=== PATIENT | male | born 1990 | race Caucasian/White ===

== ENCOUNTER 2018-03-19 17:37 | Emergency (ER) | payer SELFPAY ==
[~2018-03-19] VITALS: Ht 180.3 cm; Wt 63.0 kg
[~2018-03-19 17:37] MED LIST: CEPH500C3 PO; DOXY100T PO; LORTA10 PO; Z.0.NO CURRENT MEDS
[2018-03-19 17:39] VITALS: BP 141/69; PULSE 89; RESP 16; TEMP 98; O2SAT 98
--- NOTE | 2018-03-19 18:41 | PD ---
HPI Chief Complaint: Skin Problem Time Seen by Provider: 18:29 Travel History International Travel<30 days: No Contact w/Intl Traveler<30days: No Traveled to known affect area: No History of Present Illness HPI Patient comes in for evaluation of what he believes is athlete's foot the bilateral feet has been ongoing for a month and getting progressively worse. Patient reports trying multiple [id number] antifungal creams as well as soaking his feet in water with vinegar and water with bleach. Reports burning sensation in his feet that is worse palpation. 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 Patient reports he is also tried using Gold Macias powder in his boots as well as buying new socks. Denies any fevers with this or weight loss. PFSH Past Medical History Medical History: Denies Significant Hx ADHD: No Cancer: No Diabetes: No Diminished Hearing: No Psychiatric: No Migraines: No Seizures: No Thyroid Disease: No Ulcer: No Past Surgical History Abdominal Surgery: Yes Appendectomy: No Cholecystectomy: No Social History Alcohol Use: No Tobacco Use: Yes (1PPD) Substance Use: No Allergies-Medications (Allergen,Severity, Reaction): Coded Allergies: Sulfa (Sulfonamide Antibiotics) (Unverified Allergy, Unknown, Hives, ) Uncoded Allergies: SEASONAL (Allergy, Unknown, Hives, 05/03/06) Reported Meds & Prescriptions Reported Meds & Active Scripts Active Terbinafine Topical 1 % Cream 1 Applic TOPICAL BID 28 Days Hydrocodone/Acetaminophen 10 mg/325 mg 10 Mg/325 Mg Tab 1 Tab PO Q4HPRN Doxycycline Hyclate 100 mg (Doxycycline Hyclate) 100 Mg Tab 100 Mg PO BID Keflex (Cephalexin Monohydrate) 500 Mg Cap 500 Mg PO QID Reported No Current Meds (Miscellaneous Medication) Misc Review of Systems Except as stated in HPI: all other systems reviewed are Neg Physical Exam Narrative GENERAL: Well-developed, well nourished, in no acute distress, and non-ill appearing. SKIN: Tinea pedis noted bilateral feet. No signs of secondary infection. No signs of cellulitis or abscess. No crepitus. HEAD: Atraumatic. Normocephalic. EYES: Pupils equal and round. EOMI. No scleral icterus. No injection or drainage. ENT: No nasal bleeding or discharge. Mucous membranes pink and moist. NECK: Trachea midline. Supple. No nuclear rigidity. CARDIOVASCULAR: Dorsal pulses 2+, intact, and equal bilaterally. Capillary refill less than 2 seconds. RESPIRATORY: No accessory muscle use. No respiratory distress. MUSCULOSKELETAL: No obvious deformities. No clubbing. No cyanosis. No edema. Full range of motion. NEUROLOGICAL: Awake and alert. No obvious cranial nerve deficits. Motor grossly within normal limits. Normal speech. PSYCHIATRIC: Appropriate mood and affect; insight and judgment normal. Data Data Last Documented VS Vital Signs Date Time Temp Pulse Resp B/P (MAP) Pulse Ox O2 Delivery O2 Flow Rate FiO2 03/19/18 19:08 81 18 129/79 (96) 100 03/19/18 17:39 98.0 Orders Orders Ed Discharge Order (03/19/18 18:52) MDM Medical Decision Making Medical Screen Exam Complete: Yes Emergency Medical Condition: Yes Differential Diagnosis Tinea pedis, cellulitis, folliculitis Narrative Course The patient looks great and was non-ill appearing. There was no evidence of secondary infection. There was no evidence to suggest scabies, cellulitis, folliculitis or abscess, Staph. Scalded Skin Syndrome, Toxic Shock, Toxic Epidermal necrolysis, Kawasaki, Measles, Rubella, cutaneous T cell lymphoma, Erythema Multiforme (minor or major). Plan of care was discussed with the patient and the patient is to follow up with their physician. The patient agreed with plan. Patient in no obvious distress upon re-evaluation. Patient was asked if they wanted to speak to my attending, which the patient did not wish to do at this time. Any questions/concerns in reference to patient diagnosis/condition discussed and clarified prior to patient's discharge. Reinforced sheer importance of close follow up with patient's primary physician or primary care clinic and/or community assistant. Instructed patient to return to ED immediately, if symptoms return/worsen. Patient showed understanding of above instructions. Further instructions and recommendations were detailed in discharge paperwork. Patient ambulated without difficulty out of ED at discharge. Diagnosis Primary Impression: Tinea pedis of both feet Referrals: [facility] Patient Instructions: Athlete's Foot (ED), General Instructions Additional Instructions: Follow-up with your primary care physician and/or community assistant in 5-7 days for evaluation. Take all medication as prescribed. Changes your socks multiple times throughout the day to help keep feet dry. Use aluminum acetate over-the- counter to soak his feet twice daily. Follow instructions on the packaging. Continue using Gold Macias powder in your boots. Return to the emergency department if symptoms get worse. Med/Other Pt SpecificInfo: Prescription(s) given Scripts Terbinafine Topical (Terbinafine Topical) 1 % Cream 1 APPLIC TOPICAL BID for Manage Fungal Infection for 28 Days, #1 TUBE 0 Refills Prov: Deann Eid MD 03/19/18 Disposition: 01 DISCHARGE HOME Condition: Stable Kevin Sadler Mar 19, 2018 18:41
[2018-03-19] MEDS ORDERED: TERB1CRE11 TOPICAL (18:50)
[2018-03-19 19:08] VITALS: BP 129/79
== END 2018-03-19 19:09 | disposition home or self-care (01) ==
LOC: PHED 17:37 → PHEFT 19:09
DX: B35.3 Tinea pedis (principal); F17.200 Nicotine dependence, unspecified, uncomplicated; Z88.2 Allergy status to sulfonamides; Z79.899 Other long term (current) drug therapy
CPT/HCPCS: 99282